=== PATIENT | female | born 1950 | race Two or more races ===

== ENCOUNTER 2023-08-06 10:17 | Inpatient (IN) | payer OTHER, MEDICAID ==
[~2023-08-06] VITALS: Ht 152.4 cm; Wt 104.0 kg
[2023-08-06 11:07] LABS: Basophils # (auto) 0 10 ^3/uL (0-0.2); Basophils % (auto) 0.1 % (0.0-2.0); Eosinophils # (auto) 0 10 ^3/uL (0-0.8); Eosinophils % (auto) 0.1 % (0.0-7.0); Hematocrit 46.9 % (36.0-46.0); Hemoglobin 15.5 g/dL (12.2-16.2); Lymphocytes # (auto) 1.8 10 ^3/uL (0.4-5.4); Lymphocytes % (auto) 9.9 % (10.0-50.0); Mean Corpuscular Hemoglobin 30.5 pg (28.0-32.0); Mean Corpuscular Volume 92.6 fL (80.0-100.0); Monocytes # (auto) 1.3 10 ^3/uL (0-1.3); Monocytes % (auto) 7.2 % (0.0-12.0); Neutrophils # (auto) 15.2 10 ^3/uL (1.6-8.6); Neutrophils % (auto) 82.7 % (37.0-80.0); Red Blood Cells 5.07 10^6/uL (4.0-5.20); Red Cell Distribution Width 13.8 % (11.8-14.3); White Blood Cell 18.3 10^3/uL (4.4-10.8)
[2023-08-06 11:10] LABS: Alanine Aminotransferase 122 U/L (7-40); Albumin 4.3 g/dL (3.2-4.8); Alkaline Phosphatase 79 U/L (46-116); Anion Gap 12 (5-15); Aspartate Aminotransferase 230 U/L (13-40); BUN/Creatinine Ratio 23.8 (10.0-20.0); Bilirubin, Total 0.6 mg/dL (0.2-1.0); Blood Urea Nitrogen 20 mg/dL (9-23); Carbon Dioxide 27 mmol/L (20-30); Chloride 104 mmol/L (98-107); Glucose 185 mg/dL (74-106); Potassium 3.2 mmol/L (3.5-5.1); Sodium 143 mmol/L (136-145); Total Protein 6.9 g/dL (5.7-8.2)
[2023-08-06] MEDS: ONDANSETRON HCL 4 MG/2 ML VIAL IV ONE (11:16)
[2023-08-06 11:17] VITALS: PULSE 90; RESP 20; O2SAT 98
[2023-08-06] MEDS: MORPHINE SULFATE 4 MG/ML SYR/VIAL IV ONE (11:22)
[2023-08-06 13:25] VITALS: PULSE 107; RESP 18; O2SAT 95
[2023-08-06] MEDS: MORPHINE SULFATE INJ 2 MG/ml SYRG ONE (13:27)
[2023-08-06] MEDS ORDERED: KETOROLAC TROMETH 30 MG/ML 1ML VIAL IV PRN (13:30)
[2023-08-06] MEDS: SODIUM CHLORIDE 0.9% 2,000 ML IV ONE (13:30)
[2023-08-06] MEDS: MORPHINE SULFATE INJ 2 MG/ml SYRG IV ONE (13:35)
[2023-08-06] MEDS: PIPERACILLIN-TAZOB 3.375GM 100 ML IV ONE (13:43)
[2023-08-06] MEDS: SODIUM CHLORIDE 0.9% 1,000 ML IV SCH ×2 (13:45→16:32)
[2023-08-06] MEDS ORDERED: ACETAMINOPHEN 325 MG TAB PO PRN (13:45)
[2023-08-06] MEDS ORDERED: PIPERACILLIN-TAZOB 3.375GM 100 ML IV SCH (14:00)
[2023-08-06] MEDS: PANTOPRAZOLE 40 MG/10 ML VIAL INJ IV ONE ×2 (14:01→14:07)
[2023-08-06] MEDS: KETOROLAC TROMETH 30 MG/ML 1ML VIAL ONE (14:01)
[2023-08-06] MEDS: POTASSIUM EFFERVESENT TAB 25 MEQ ONE (14:01)
[2023-08-06 14:02] LABS: Lactic Acid w/Reflex 5.7 mmol/L (0.4-2.0)
[2023-08-06] MEDS: SODIUM CHLORIDE 0.9% 1,000 ML IV ONE (14:07)
[2023-08-06] MEDS: metroNIDAZOLE 500MG/100ML 100 ML IV ONE ×2 (14:07→22:00)
[2023-08-06] MEDS: POTASSIUM EFFERVESENT TAB 25 MEQ PO ONE (14:07)
[2023-08-06] MEDS: KETOROLAC TROMETH 30 MG/ML 1ML VIAL IV ONE (14:08)
[2023-08-06] MEDS: metroNIDAZOLE 500MG/100ML 100 ML IV SCH (14:34)
[2023-08-06 14:36] LABS: Triglycerides 108 mg/dL (< 150)
[2023-08-06] MEDS: levoFLOXacin 750MG 150 ML IV ONE (14:36)
[2023-08-06 14:37] LABS: LDL Cholesterol 121 mg/dL (< 100)
[2023-08-06 14:38] LABS: Cholesterol 204 mg/dL (< 200); HDL Cholesterol 67 mg/dL (40-59)
[2023-08-06 14:40] LABS: INR 1.05 (0.9-1.15)
[2023-08-06] MEDS: MEROPENEM 1GM IVPB 50 ML IV SCH (16:10)
[2023-08-06] MEDS: ONDANSETRON HCL 4 MG/2 ML VIAL ONE ×2 (17:31→23:25)
[2023-08-06] MEDS: MORPHINE SULFATE 4 MG/ML SYR/VIAL ONE (17:38)
[2023-08-06] MEDS: HYDROmorphone HCL 2 MG/ML VL/or syr ONE ×2 (17:46→23:25)
[2023-08-06] MEDS: HYDROmorphone HCL 2 MG/ML VL/or syr IV PRN (17:47)
[2023-08-06 18:44] LABS: LDL Cholesterol 91 mg/dL (< 100); Triglycerides 72 mg/dL (< 150)
[2023-08-06] MEDS ORDERED: hydrALAZINE HCL 20 MG/ML VL IV PRN (18:45)
[2023-08-06 18:46] LABS: Cholesterol 162 mg/dL (< 200); HDL Cholesterol 56 mg/dL (40-59)
[2023-08-06 18:55] LABS: Lactic Acid w/Reflex 4.3 mmol/L (0.4-2.0)
[2023-08-06 19:45] VITALS: PULSE 112; RESP 14; O2SAT 96
[2023-08-06 20:57] LABS: Urine Bacteria None Seen /hpf (None Seen)
[2023-08-06 21:04] LABS: Urine Blood 1+ /uL (Negative); Urine Clarity Clear (Clear); Urine Color Yellow (Yellow); Urine Mucus FEW (None Seen); Urine Protein, UAD 1+ (Negative); Urine Urobilinogen Normal (Negative); Urine WBC 5 /hpf (0 - 5); Urine pH 6.5 (5.0-9.0)
[2023-08-06 21:15] LABS: Amphetamine Screen, Urine Neg (NEGATIVE); Barbiturate Scree,Urine Neg (NEGATIVE); Benzodiazephine Screen, Urine Neg (NEGATIVE)
[2023-08-06 21:16] LABS: Cannabinoid Screen, Urine Neg (NEGATIVE); Cocaine Screen, Urine Neg (NEGATIVE); Opiate Scree,Urine Pos (NEGATIVE); Phencyclidine Screen, Urine Neg (NEGATIVE)
[2023-08-06 21:20] LABS: Urine Specific Gravity > 1.035 (1.001-1.035)
[2023-08-06] MEDS: MEROPENEM 500MG IVPB 50 ML IV ONE (22:00)
[2023-08-06] MEDS ORDERED: MEROPENEM 1GM IVPB 50 ML IV SCH (22:00)
[2023-08-06] MEDS: ONDANSETRON HCL 4 MG/2 ML VIAL IV PRN (23:28)
[2023-08-06 23:30] VITALS: BP 151/105; PULSE 124; RESP 18; RESP 20; O2SAT 95
[2023-08-07] VITALS (10 sets, daily range): BP systolic 101–132; BP diastolic 62–89; PULSE 132–143; RESP 16–22; TEMP 96.5–98.6; O2SAT 92–98
[2023-08-07] MEDS: MORPHINE SULFATE INJ 2 MG/ml SYRG ONE (05:36)
[2023-08-07] MEDS: metroNIDAZOLE 500MG/100ML 100 ML IV ONE (05:36)
[2023-08-07] MEDS: MORPHINE SULFATE INJ 2 MG/ml SYRG IV PRN (05:42)
[2023-08-07 06:38] LABS: Alanine Aminotransferase 60 U/L (7-40); Albumin 3.3 g/dL (3.2-4.8); Alkaline Phosphatase 53 U/L (46-116); Anion Gap 12 (5-15); BUN/Creatinine Ratio 14.5 (10.0-20.0); Bilirubin, Total 0.8 mg/dL (0.2-1.0); Blood Urea Nitrogen 19 mg/dL (9-23); Carbon Dioxide 18 mmol/L (20-30); Chloride 110 mmol/L (98-107); Glucose 190 mg/dL (74-106); Potassium 5.1 mmol/L (3.5-5.1); Sodium 140 mmol/L (136-145); Total Protein 5.9 g/dL (5.7-8.2)
[2023-08-07 06:44] LABS: Lactic Acid w/Reflex 4.7 mmol/L (0.4-2.0)
[2023-08-07 06:45] LABS: Lipase 1307 U/L (12-53)
[2023-08-07 06:47] LABS: Aspartate Aminotransferase 72 U/L (13-40)
[2023-08-07 06:57] LABS: Hematocrit 52.2 % (36.0-46.0); Mean Corpuscular Hemoglobin 30.5 pg (28.0-32.0); Mean Corpuscular Hgb Conc. 32.6 g/dL (32.0-36.0); Mean Corpuscular Volume 93.5 fL (80.0-100.0); Red Blood Cells 5.58 10^6/uL (4.0-5.20); Red Cell Distribution Width 14.6 % (11.8-14.3); White Blood Cell 21.3 10^3/uL (4.4-10.8)
[2023-08-07 07:01] LABS: Band Neutrophils % (manual) 0; Basophils % (manual) 0 (0.0-2.0); Blast Cells 0; Eosinophils % (manual) 0 (0-7); Metamyelocytes % 0; Myelocytes % 0; Promyelocytes % 0; Reactive Lymphocytes 0
[2023-08-07 08:04] LABS: Lymphocytes % (manual) 6 (10.0-50.0); Monocytes % (manual) 6 (0-12); Platelet Estimate Adequate
[2023-08-07 08:33] LABS: Hepatitis B Surface Antigen Negative (Negative)
[2023-08-07 08:53] LABS: Hepatitis A Ab IgM Negative
[2023-08-07 08:54] LABS: Hepatitis B Core IgM Negative; Hepatitis C Antibody Negative (Negative)
[2023-08-07] MEDS ORDERED: ENOXAPARIN SOD 40 MG/0.4 ML SYRINGE SC SCH (10:00)
[2023-08-07] MEDS: PANTOPRAZOLE 40 MG/10 ML VIAL INJ IV SCH (12:20)
[2023-08-07] MEDS: MEROPENEM 1GM IVPB 50 ML IV SCH (12:20)
[2023-08-07] MEDS: ALBUTEROL SULF 2.5 MG/0.5ML(0.5%) NEB SOLN ONE (21:00)
[2023-08-07] MEDS: ALBUTEROL SULF 2.5 MG/0.5ML(0.5%) NEB SOLN NEB PRN (21:15)
[2023-08-07] MEDS: ENOXAPARIN SOD 100 MG/1 ML SYRINGE SC ONE ×2 (22:15→23:06)
[2023-08-07] MEDS: SODIUM CHLORIDE 0.9% 1,000 ML IV SCH (23:20)
[2023-08-08] VITALS (56 sets, daily range): BP systolic 87–187; BP diastolic 49–98; PULSE 104–153; RESP 18–41; TEMP 97.6–100.6; O2SAT 88–100
[2023-08-08] MEDS: IOHEXOL 350 MG/ML 100ML IJ ONE (00:18)
[2023-08-08] MEDS: ALBUTEROL SULF 2.5 MG/0.5ML(0.5%) NEB SOLN ONE (04:17)
[2023-08-08 07:03] LABS: Alanine Aminotransferase 37 U/L (7-40); Alkaline Phosphatase 58 U/L (46-116); Anion Gap 12 (5-15); Aspartate Aminotransferase 103 U/L (13-40); BUN/Creatinine Ratio 12.3 (10.0-20.0); Calcium 7.1 mg/dL (8.5-10.1); Carbon Dioxide 16 mmol/L (20-30); Chloride 112 mmol/L (98-107); Glucose 117 mg/dL (74-106); Potassium 4.7 mmol/L (3.5-5.1); Sodium 140 mmol/L (136-145)
[2023-08-08 07:04] LABS: Bilirubin, Total 0.9 mg/dL (0.2-1.0); Total Protein 5.1 g/dL (5.7-8.2)
[2023-08-08 07:06] LABS: Basophils # (auto) 0 10 ^3/uL (0-0.2); Blood Urea Nitrogen 31 mg/dL (9-23); Eosinophils # (auto) 0 10 ^3/uL (0-0.8); Hemoglobin 14.3 g/dL (12.2-16.2); Red Cell Distribution Width 15.7 % (11.8-14.3); White Blood Cell 27.1 10^3/uL (4.4-10.8)
[2023-08-08 07:10] LABS: Basophils % (auto) 0.1 % (0.0-2.0); Lymphocytes # (auto) 1.5 10 ^3/uL (0.4-5.4); Lymphocytes % (auto) 5.6 % (10.0-50.0); Mean Corpuscular Hemoglobin 31.1 pg (28.0-32.0); Mean Corpuscular Hgb Conc. 31.8 g/dL (32.0-36.0); Mean Corpuscular Volume 97.8 fL (80.0-100.0); Monocytes % (auto) 7.4 % (0.0-12.0); Neutrophils # (auto) 23.6 10 ^3/uL (1.6-8.6); Neutrophils % (auto) 86.9 % (37.0-80.0); Red Blood Cells 4.61 10^6/uL (4.0-5.20)
[2023-08-08 07:28] LABS: Lipase 1324 U/L (12-53)
[2023-08-08] MEDS: FUROSEMIDE 100 MG/10ML VIAL IV ONE (11:10)
[2023-08-08 11:49] LABS: Phosphorus 5.6 mg/dL (2.4-5.1)
[2023-08-08 12:12] LABS: Magnesium 1.6 mg/dL (1.6-2.6)
[2023-08-08 13:13] LABS: Base Excess -10.2 mmol/L (-2.0-2.0)
[2023-08-08] MEDS: fentaNYL Drip 2500mCg/250mlNS 250 ML IV ONE (13:16)
[2023-08-08] MEDS: ROCURONIUM 10MG/ML 10ML VIAL IV ONE ×2 (13:16→13:33)
[2023-08-08] MEDS: ETOMIDATE (2MG/ML) 20ML VIAL IV ONE ×2 (13:16→13:33)
[2023-08-08] MEDS: PROPOFOL 100 ML IV ONE (13:17)
[2023-08-08] MEDS: NOREPINEPHRINE 8 MG/250ML KIT 250 ML IV ONE (13:19)
[2023-08-08] MEDS: SODIUM BICARB 8.4% 50Meq/50ml SYR INJ ONE (13:39)
[2023-08-08] MEDS: PHENYLEPHRINE IV 250 ML IV ONE (13:40)
[2023-08-08] MEDS: fentaNYL Drip 2500mCg/250mlNS 250 ML IV SCH (13:42)
[2023-08-08] MEDS: PROPOFOL 100 ML IV SCH (13:42)
[2023-08-08] MEDS: NOREPINEPHRINE 8 MG/250ML KIT 250 ML IV SCH (13:42)
[2023-08-08] MEDS: SODIUM BICARB 8.4% 50Meq/50ml SYR Vial IV ONE ×2 (13:45→16:29)
[2023-08-08 15:05] LABS: Base Excess -9.1 mmol/L (-2.0-2.0)
[2023-08-08] MEDS: PHENYLEPHRINE IV 250 ML IV SCH (15:30)
[2023-08-08] MEDS: VASOPRESSIN 20 UNITS in SODIUM CHL 0.9% 99 ML IV SCH (15:30)
[2023-08-08] MEDS: MIDAZOLAM DRIP 50 mg/50mL 50 ML IV SCH (15:30)
[2023-08-08] MEDS: ACETAMINOPHEN IV 1000 MG/100ML (10MG/ML) IV PRN (22:05)
[2023-08-08] MEDS: MEROPENEM 500MG IVPB 50 ML IV SCH (22:06)
[2023-08-09] VITALS (102 sets, daily range): BP systolic 84–120; BP diastolic 43–73; PULSE 99–134; RESP 16–24; TEMP 98.6–100.4; O2SAT 95–100
[2023-08-09 03:48] LABS: Basophils # (auto) 0.1 10 ^3/uL (0-0.2); Basophils % (auto) 0.3 % (0.0-2.0); Eosinophils # (auto) 0 10 ^3/uL (0-0.8); Eosinophils % (auto) 0.1 % (0.0-7.0); Hematocrit 40.7 % (36.0-46.0); Hemoglobin 13.3 g/dL (12.2-16.2); Lymphocytes # (auto) 1.3 10 ^3/uL (0.4-5.4); Lymphocytes % (auto) 6.1 % (10.0-50.0); Mean Corpuscular Hemoglobin 30.1 pg (28.0-32.0); Mean Corpuscular Hgb Conc. 32.6 g/dL (32.0-36.0); Mean Corpuscular Volume 92.3 fL (80.0-100.0); Monocytes % (auto) 4.8 % (0.0-12.0); Neutrophils # (auto) 18.4 10 ^3/uL (1.6-8.6); Neutrophils % (auto) 88.7 % (37.0-80.0); Red Blood Cells 4.41 10^6/uL (4.0-5.20); Red Cell Distribution Width 14.8 % (11.8-14.3); White Blood Cell 20.7 10^3/uL (4.4-10.8)
[2023-08-09 04:06] LABS: Anion Gap 11 (5-15); Carbon Dioxide 20 mmol/L (20-30); Chloride 112 mmol/L (98-107); Potassium 3.6 mmol/L (3.5-5.1); Sodium 143 mmol/L (136-145)
[2023-08-09 04:07] LABS: Calcium 6.9 mg/dL (8.7-10.4); INR 1.38 (0.9-1.15); Prothrombin Time 14.2 sec (9.3-11.8)
[2023-08-09 04:12] LABS: BUN/Creatinine Ratio 28.9 (10.0-20.0); Glucose 142 mg/dL (74-106)
[2023-08-09 04:15] LABS: Blood Urea Nitrogen 48 mg/dL (9-23)
[2023-08-09 07:05] LABS: Base Excess -3.8 mmol/L (-2.0-2.0)
[2023-08-09] MEDS: KETOROLAC TROMETH 30 MG/ML 1ML VIAL IV ONE (11:06)
[2023-08-09] MEDS ORDERED: TPN PER PHARMACY 0 ML IV SCH (14:00)
[2023-08-09] MEDS: FUROSEMIDE INJECTION 10 ML ONE (14:21)
[2023-08-09] MEDS: FUROSEMIDE 100 MG/10ML VIAL IV ONE ×2 (14:30)
[2023-08-09] MEDS ORDERED: KETOROLAC TROMETH 30 MG/ML 1ML VIAL IV PRN (17:15)
[2023-08-09] MEDS ORDERED: DEXTROSE (50%) 50ML SYRG IV SCH (20:00)
[2023-08-09] MEDS: AMINO ACID INFUSION IN D10W 1,000 ML IV SCH (20:07)
[2023-08-09] MEDS: InsuLIN REG 1unit/0.01ml Soln (100units/ml) SC SCH (23:49)
[2023-08-09] MEDS: ACCU-CHEK COMFORT CURVE STRIP VI SCH (23:49)
[2023-08-10] VITALS (106 sets, daily range): BP systolic 85–137; BP diastolic 37–90; PULSE 65–116; RESP 16–24; TEMP 98.6–100.8; O2SAT 93–100
[2023-08-10 04:18] LABS: Alanine Aminotransferase 15 U/L (7-40); Albumin 2.4 g/dL (3.2-4.8); Alkaline Phosphatase 49 U/L (46-116); Anion Gap 9 (5-15); Aspartate Aminotransferase 26 U/L (13-40); BUN/Creatinine Ratio 32.3 (10.0-20.0); Bilirubin, Total 0.5 mg/dL (0.2-1.0); Blood Urea Nitrogen 40 mg/dL (9-23); Carbon Dioxide 20 mmol/L (20-30); Chloride 115 mmol/L (98-107); Glucose 195 mg/dL (74-106); Lipase 80 U/L (12-53); Magnesium 1.5 mg/dL (1.6-2.6); Phosphorus 3.3 mg/dL (2.4-5.1); Potassium 3.6 mmol/L (3.5-5.1); Sodium 144 mmol/L (136-145)
[2023-08-10 04:19] LABS: Total Protein 4.5 g/dL (5.7-8.2)
[2023-08-10 04:32] LABS: Triglycerides 293 mg/dL (< 150)
[2023-08-10 07:53] LABS: Base Excess -4.4 mmol/L (-2.0-2.0)
[2023-08-10] MEDS: MAGNESIUM SULFATE 1GM/100ML 100 ML IV SCH (09:16)
[2023-08-10] MEDS: ACETAMINOPHEN IV 1000 MG/100ML (10MG/ML) IV PRN (10:13)
[2023-08-10] MEDS: LACTATED RINGER'S 1,000 ML IV SCH (10:14)
[2023-08-10] MEDS: FUROSEMIDE 40 MG/4 ML VIAL IV ONE (16:45)
[2023-08-10] MEDS: TPN PER PHARMACY IV NR (20:00)
[2023-08-11] VITALS (107 sets, daily range): BP systolic 91–143; BP diastolic 32–67; PULSE 75–102; RESP 17–23; TEMP 99.1–100.6; O2SAT 92–100
[2023-08-11 03:31] LABS: Hematocrit 33.1 % (36.0-46.0); Hemoglobin 10.6 g/dL (12.2-16.2); Mean Corpuscular Hemoglobin 29.8 pg (28.0-32.0); Mean Corpuscular Hgb Conc. 32.1 g/dL (32.0-36.0); Mean Corpuscular Volume 92.6 fL (80.0-100.0); Red Blood Cells 3.57 10^6/uL (4.0-5.20); Red Cell Distribution Width 14.8 % (11.8-14.3); White Blood Cell 23.2 10^3/uL (4.4-10.8)
[2023-08-11 03:44] LABS: Basophils % (manual) 0 (0.0-2.0); Blast Cells 0; Eosinophils % (manual) 0 (0-7); Metamyelocytes % 0; Myelocytes % 0; Promyelocytes % 0; Reactive Lymphocytes 0
[2023-08-11 03:50] LABS: Alanine Aminotransferase 11 U/L (7-40); Albumin 2.3 g/dL (3.2-4.8); Alkaline Phosphatase 67 U/L (46-116); Anion Gap 5 (5-15); Aspartate Aminotransferase 27 U/L (13-40); BUN/Creatinine Ratio 46.8 (10.0-20.0); Blood Urea Nitrogen 36 mg/dL (9-23); Calcium 7.8 mg/dL (8.7-10.4); Carbon Dioxide 26 mmol/L (20-30); Chloride 114 mmol/L (98-107); Glucose 173 mg/dL (74-106); Lipase 47 U/L (12-53); Magnesium 2.1 mg/dL (1.6-2.6); Potassium 3.9 mmol/L (3.5-5.1); Sodium 145 mmol/L (136-145)
[2023-08-11 03:51] LABS: Bilirubin, Total 0.5 mg/dL (0.2-1.0); Phosphorus 2.4 mg/dL (2.4-5.1); Total Protein 4.4 g/dL (5.7-8.2)
[2023-08-11 05:20] LABS: Band Neutrophils % (manual) 39; Lymphocytes % (manual) 8 (10.0-50.0); Monocytes % (manual) 3 (0-12); Platelet Estimate Adequate
[2023-08-11 08:30] LABS: Base Excess 1.3 mmol/L (-2.0-2.0)
[2023-08-11] MEDS: FUROSEMIDE 40 MG/4 ML VIAL IV ONE (11:14)
[2023-08-11] MEDS: POTASSIUM PHOSPHATE 11 MEQ in SODIUM CHL 0.9% 100 ML IV ONE (12:02)
[2023-08-11] MEDS: LACTATED RINGER'S 1,000 ML IV SCH (16:29)
[2023-08-11] MEDS: TPN PER PHARMACY IV NR (19:51)
[2023-08-12] VITALS (112 sets, daily range): BP systolic 95–155; BP diastolic 43–85; PULSE 86–119; RESP 14–26; TEMP 99.3–100; O2SAT 90–100
[2023-08-12 04:10] LABS: Hematocrit 30.4 % (36.0-46.0); Hemoglobin 9.8 g/dL (12.2-16.2); Mean Corpuscular Hemoglobin 29.8 pg (28.0-32.0); Mean Corpuscular Hgb Conc. 32.3 g/dL (32.0-36.0); Mean Corpuscular Volume 92.4 fL (80.0-100.0); Red Blood Cells 3.29 10^6/uL (4.0-5.20); Red Cell Distribution Width 14.9 % (11.8-14.3); White Blood Cell 22.8 10^3/uL (4.4-10.8)
[2023-08-12 04:13] LABS: Basophils % (manual) 0 (0.0-2.0); Blast Cells 0; Eosinophils % (manual) 0 (0-7); Metamyelocytes % 0; Myelocytes % 0; Promyelocytes % 0; Reactive Lymphocytes 0
[2023-08-12 04:28] LABS: Alanine Aminotransferase 11 U/L (7-40); Albumin 2.2 g/dL (3.2-4.8); Alkaline Phosphatase 71 U/L (46-116); Anion Gap 3 (5-15); Aspartate Aminotransferase 26 U/L (13-40); Bilirubin, Total 0.4 mg/dL (0.2-1.0); Blood Urea Nitrogen 33 mg/dL (9-23); Calcium 7.9 mg/dL (8.7-10.4); Carbon Dioxide 31 mmol/L (20-30); Chloride 112 mmol/L (98-107); Glucose 356 mg/dL (74-106); Magnesium 2.3 mg/dL (1.6-2.6); Phosphorus 2.2 mg/dL (2.4-5.1); Potassium 3.8 mmol/L (3.5-5.1); Sodium 146 mmol/L (136-145); Total Protein 4.3 g/dL (5.7-8.2)
[2023-08-12 04:44] LABS: Band Neutrophils % (manual) 19; Lymphocytes % (manual) 10 (10.0-50.0); Monocytes % (manual) 7 (0-12)
[2023-08-12 04:45] LABS: Platelet Estimate Adequate
[2023-08-12 09:25] LABS: Base Excess 1.8 mmol/L (-2.0-2.0)
[2023-08-12] MEDS: FUROSEMIDE 40 MG/4 ML VIAL ONE (10:09)
[2023-08-12] MEDS: FUROSEMIDE 40 MG/4 ML VIAL IV ONE (10:19)
[2023-08-12] MEDS: POTASSIUM PHOSPHATE 22 MEQ in SODIUM CHL 0.9% 100 ML IV ONE (12:50)
[2023-08-12] MEDS: TPN PER PHARMACY IV NR (19:29)
[2023-08-13] VITALS (114 sets, daily range): BP systolic 80–149; BP diastolic 43–101; PULSE 70–122; RESP 15–30; TEMP 98.6–99.7; O2SAT 93–99
[2023-08-13 03:54] LABS: Hematocrit 32.9 % (36.0-46.0); Hemoglobin 10.8 g/dL (12.2-16.2); Mean Corpuscular Hemoglobin 30.2 pg (28.0-32.0); Mean Corpuscular Hgb Conc. 32.9 g/dL (32.0-36.0); Red Blood Cells 3.58 10^6/uL (4.0-5.20); Red Cell Distribution Width 14.7 % (11.8-14.3); White Blood Cell 26.9 10^3/uL (4.4-10.8)
[2023-08-13 03:56] LABS: Albumin 2.5 g/dL (3.2-4.8); Alkaline Phosphatase 96 U/L (46-116); Anion Gap 7 (5-15); Aspartate Aminotransferase 39 U/L (13-40); BUN/Creatinine Ratio 59.6 (10.0-20.0); Blood Urea Nitrogen 31 mg/dL (9-23); Calcium 8.1 mg/dL (8.7-10.4); Carbon Dioxide 31 mmol/L (20-30); Chloride 112 mmol/L (98-107); Glucose 231 mg/dL (74-106); Magnesium 2.2 mg/dL (1.6-2.6); Potassium 3.3 mmol/L (3.5-5.1); Sodium 150 mmol/L (136-145)
[2023-08-13 03:57] LABS: Total Protein 4.8 g/dL (5.7-8.2)
[2023-08-13 04:14] LABS: Basophils % (manual) 0 (0.0-2.0); Blast Cells 0; Eosinophils % (manual) 0 (0-7); Metamyelocytes % 0; Myelocytes % 0; Promyelocytes % 0; Reactive Lymphocytes 0
[2023-08-13 04:22] LABS: Alanine Aminotransferase 16 U/L (7-40)
[2023-08-13 05:15] LABS: Phosphorus 2.7 mg/dL (2.4-5.1); Triglycerides 199 mg/dL (< 150)
[2023-08-13] MEDS: POTASSIUM CHL 20MEQ/100ML 100 ML IV ONE ×2 (05:49→10:00)
[2023-08-13 07:21] LABS: Band Neutrophils % (manual) 18; Lymphocytes % (manual) 9 (10.0-50.0); Monocytes % (manual) 6 (0-12); Platelet Estimate Adequate
[2023-08-13 07:59] LABS: Base Excess 6.9 mmol/L (-2.0-2.0)
[2023-08-13] MEDS: FUROSEMIDE 40 MG/4 ML VIAL IV SCH (10:31)
[2023-08-13] MEDS: METOPROLOL TARTRATE 1MG/1ML-5ML VIAL IV SCH (18:34)
[2023-08-13] MEDS: TPN PER PHARMACY IV NR (22:18)
[2023-08-14] VITALS (110 sets, daily range): BP systolic 82–136; BP diastolic 25–73; PULSE 81–125; RESP 12–32; TEMP 99.3–101.5; O2SAT 93–100
[2023-08-14 04:04] LABS: Hematocrit 31.6 % (36.0-46.0); Hemoglobin 10.2 g/dL (12.2-16.2); Mean Corpuscular Hemoglobin 29.7 pg (28.0-32.0); Mean Corpuscular Hgb Conc. 32.1 g/dL (32.0-36.0); Mean Corpuscular Volume 92.5 fL (80.0-100.0); Red Blood Cells 3.42 10^6/uL (4.0-5.20); Red Cell Distribution Width 14.8 % (11.8-14.3); White Blood Cell 27.5 10^3/uL (4.4-10.8)
[2023-08-14 04:17] LABS: Basophils % (manual) 0 (0.0-2.0); Blast Cells 0; Eosinophils % (manual) 0 (0-7); Metamyelocytes % 0; Promyelocytes % 0; Reactive Lymphocytes 0
[2023-08-14 04:24] LABS: Alanine Aminotransferase 36 U/L (7-40); Albumin 2.6 g/dL (3.2-4.8); Alkaline Phosphatase 109 U/L (46-116); Anion Gap 7 (5-15); Aspartate Aminotransferase 70 U/L (13-40); BUN/Creatinine Ratio 56.1 (10.0-20.0); Blood Urea Nitrogen 32 mg/dL (9-23); Calcium 8.2 mg/dL (8.7-10.4); Carbon Dioxide 35 mmol/L (20-30); Chloride 108 mmol/L (98-107); Glucose 212 mg/dL (74-106); Magnesium 2.1 mg/dL (1.6-2.6); Potassium 3.4 mmol/L (3.5-5.1); Sodium 150 mmol/L (136-145)
[2023-08-14 04:25] LABS: Bilirubin, Total 1.2 mg/dL (0.2-1.0); Phosphorus 3.5 mg/dL (2.4-5.1); Total Protein 4.9 g/dL (5.7-8.2)
[2023-08-14 06:48] LABS: Base Excess 9.5 mmol/L (-2.0-2.0)
[2023-08-14 07:01] LABS: Band Neutrophils % (manual) 20; Lymphocytes % (manual) 3 (10.0-50.0); Monocytes % (manual) 5 (0-12); Myelocytes % 2; Platelet Estimate Adequate
[2023-08-14] MEDS: POTASSIUM CHL 20MEQ/100ML 100 ML IV ONE (10:15)
[2023-08-14] MEDS: TPN PER PHARMACY IV NR (21:10)
[2023-08-14] MEDS: ACETAMINOPHEN IV 100 ML IV ONE (22:40)
[2023-08-15] VITALS (115 sets, daily range): BP systolic 89–122; BP diastolic 38–65; PULSE 74–115; RESP 17–30; TEMP 99.3–101.8; O2SAT 92–100
[2023-08-15 03:59] LABS: Hematocrit 30.1 % (36.0-46.0); Hemoglobin 9.5 g/dL (12.2-16.2); Mean Corpuscular Hemoglobin 29.7 pg (28.0-32.0); Mean Corpuscular Hgb Conc. 31.7 g/dL (32.0-36.0); Mean Corpuscular Volume 93.6 fL (80.0-100.0); Red Blood Cells 3.22 10^6/uL (4.0-5.20); Red Cell Distribution Width 14.9 % (11.8-14.3); White Blood Cell 28.8 10^3/uL (4.4-10.8)
[2023-08-15 04:09] LABS: Basophils % (manual) 0 (0.0-2.0); Blast Cells 0; Eosinophils % (manual) 0 (0-7); Metamyelocytes % 0; Promyelocytes % 0; Reactive Lymphocytes 0
[2023-08-15 04:22] LABS: Alanine Aminotransferase 33 U/L (7-40); Albumin 2.3 g/dL (3.2-4.8); Alkaline Phosphatase 98 U/L (46-116); Anion Gap 3 (5-15); Aspartate Aminotransferase 45 U/L (13-40); BUN/Creatinine Ratio 55.4 (10.0-20.0); Bilirubin, Total 1.2 mg/dL (0.2-1.0); Blood Urea Nitrogen 31 mg/dL (9-23); Carbon Dioxide 36 mmol/L (20-30); Chloride 109 mmol/L (98-107); Glucose 228 mg/dL (74-106); Magnesium 2.2 mg/dL (1.6-2.6); Phosphorus 3.7 mg/dL (2.4-5.1); Potassium 3.7 mmol/L (3.5-5.1); Sodium 148 mmol/L (136-145)
[2023-08-15 04:23] LABS: Total Protein 4.5 g/dL (5.7-8.2)
[2023-08-15 05:51] LABS: Band Neutrophils % (manual) 12; Monocytes % (manual) 4 (0-12); Myelocytes % 1
[2023-08-15 05:52] LABS: Large Platelets FEW; Lymphocytes % (manual) 3 (10.0-50.0); Platelet Estimate Adequate
[2023-08-15] MEDS: ENOXAPARIN SOD 40 MG/0.4 ML SYRINGE SC SCH (07:45)
[2023-08-15 09:19] LABS: Base Excess 6.5 mmol/L (-2.0-2.0)
[2023-08-15] MEDS ORDERED: VANCOMYCIN PER PHARMACY 0 MG IV SCH (10:30)
[2023-08-15] MEDS: MEROPENEM 1GM IVPB 50 ML IV SCH (11:48)
[2023-08-15] MEDS: ACETAMINOPHEN 650 MG RECT SUPP PR PRN (14:00)
[2023-08-15] MEDS: VANCOMYCIN 750mg/150ml 150 ML IV SCH (14:35)
[2023-08-15] MEDS: FUROSEMIDE 40 MG/4 ML VIAL IV SCH (16:35)
[2023-08-15] MEDS: TPN PER PHARMACY IV NR (20:14)
[2023-08-16] VITALS (98 sets, daily range): BP systolic 75–134; BP diastolic 29–65; PULSE 58–111; RESP 17–21; TEMP 98.2–100.9; O2SAT 94–100
[2023-08-16 04:26] LABS: Alanine Aminotransferase 22 U/L (7-40); Albumin 2.3 g/dL (3.2-4.8); Alkaline Phosphatase 110 U/L (46-116); Anion Gap 3 (5-15); Aspartate Aminotransferase 30 U/L (13-40); BUN/Creatinine Ratio 58.3 (10.0-20.0); Bilirubin, Total 0.9 mg/dL (0.2-1.0); Blood Urea Nitrogen 28 mg/dL (9-23); Calcium 8.2 mg/dL (8.7-10.4); Carbon Dioxide 35 mmol/L (20-30); Chloride 106 mmol/L (98-107); Glucose 164 mg/dL (74-106); Phosphorus 3.7 mg/dL (2.4-5.1); Potassium 3.8 mmol/L (3.5-5.1); Sodium 144 mmol/L (136-145); Total Protein 4.6 g/dL (5.7-8.2)
[2023-08-16 07:11] LABS: Base Excess 8.9 mmol/L (-2.0-2.0)
[2023-08-16 09:27] LABS: Red Cell Distribution Width 14.5 % (11.8-14.3)
[2023-08-16 09:29] LABS: Hematocrit 31.7 % (36.0-46.0); Hemoglobin 10.1 g/dL (12.2-16.2); Mean Corpuscular Hemoglobin 29.9 pg (28.0-32.0); Mean Corpuscular Hgb Conc. 31.8 g/dL (32.0-36.0); Mean Corpuscular Volume 93.8 fL (80.0-100.0); Red Blood Cells 3.38 10^6/uL (4.0-5.20)
[2023-08-16 09:35] LABS: White Blood Cell 32.4 10^3/uL (4.4-10.8)
[2023-08-16 09:36] LABS: Basophils % (manual) 0 (0.0-2.0); Blast Cells 0; Eosinophils % (manual) 0 (0-7); Metamyelocytes % 0; Myelocytes % 0; Promyelocytes % 0; Reactive Lymphocytes 0
[2023-08-16] MEDS: FUROSEMIDE 40 MG/4 ML VIAL IV SCH (10:16)
[2023-08-16 13:18] LABS: Band Neutrophils % (manual) 33; Lymphocytes % (manual) 7 (10.0-50.0); Monocytes % (manual) 8 (0-12)
[2023-08-16 13:19] LABS: Platelet Estimate Adequate
[2023-08-16] MEDS: TPN PER PHARMACY IV NR (19:52)
[2023-08-17] VITALS (105 sets, daily range): BP systolic 88–138; BP diastolic 36–63; PULSE 73–108; RESP 16–25; TEMP 98.8–102.4; O2SAT 93–100
[2023-08-17 04:01] LABS: Hematocrit 30.2 % (36.0-46.0); Hemoglobin 9.8 g/dL (12.2-16.2); Mean Corpuscular Hemoglobin 30.2 pg (28.0-32.0); Mean Corpuscular Hgb Conc. 32.3 g/dL (32.0-36.0); Mean Corpuscular Volume 93.4 fL (80.0-100.0); Red Blood Cells 3.23 10^6/uL (4.0-5.20); Red Cell Distribution Width 14.5 % (11.8-14.3); White Blood Cell 28.3 10^3/uL (4.4-10.8)
[2023-08-17 04:08] LABS: Basophils % (manual) 0 (0.0-2.0); Blast Cells 0; Metamyelocytes % 0; Promyelocytes % 0; Reactive Lymphocytes 0
[2023-08-17 04:18] LABS: Alanine Aminotransferase 16 U/L (7-40); Albumin 2.3 g/dL (3.2-4.8); Alkaline Phosphatase 110 U/L (46-116); Anion Gap 4 (5-15); Aspartate Aminotransferase 28 U/L (13-40); BUN/Creatinine Ratio 61.7 (10.0-20.0); Bilirubin, Total 0.8 mg/dL (0.2-1.0); Blood Urea Nitrogen 29 mg/dL (9-23); Calcium 8.2 mg/dL (8.7-10.4); Carbon Dioxide 33 mmol/L (20-30); Chloride 103 mmol/L (98-107); Glucose 165 mg/dL (74-106); Phosphorus 3.7 mg/dL (2.4-5.1); Potassium 3.9 mmol/L (3.5-5.1); Sodium 140 mmol/L (136-145); Total Protein 4.8 g/dL (5.7-8.2)
[2023-08-17 05:05] LABS: Band Neutrophils % (manual) 8; Eosinophils % (manual) 3 (0-7); Lymphocytes % (manual) 5 (10.0-50.0); Monocytes % (manual) 4 (0-12); Myelocytes % 1; Platelet Estimate Adequate
[2023-08-17 08:00] LABS: Base Excess 5.9 mmol/L (-2.0-2.0)
[2023-08-17] MEDS: GLYCERIN ADULT RECTAL SUPP PR ONE (13:50)
[2023-08-17] MEDS: VANCOMYCIN 1GM/200ML 200 ML IV SCH (14:00)
[2023-08-17] MEDS ORDERED: LABETALOL HCL 5 MG/ML 4ML SYRINGE IV PRN (19:00)
[2023-08-17] MEDS: TPN PER PHARMACY IV NR (20:00)
[2023-08-18] VITALS (113 sets, daily range): BP systolic 90–148; BP diastolic 41–75; PULSE 71–103; RESP 15–24; TEMP 98.6–101.7; O2SAT 96–100
[2023-08-18 04:23] LABS: Hematocrit 29.9 % (36.0-46.0); Hemoglobin 9.5 g/dL (12.2-16.2); Mean Corpuscular Hemoglobin 29.4 pg (28.0-32.0); Mean Corpuscular Hgb Conc. 31.7 g/dL (32.0-36.0); Red Blood Cells 3.22 10^6/uL (4.0-5.20); Red Cell Distribution Width 14.7 % (11.8-14.3); White Blood Cell 28.9 10^3/uL (4.4-10.8)
[2023-08-18 04:30] LABS: Basophils % (manual) 0 (0.0-2.0); Blast Cells 0; Metamyelocytes % 0; Myelocytes % 0; Promyelocytes % 0; Reactive Lymphocytes 0
[2023-08-18 05:34] LABS: Alkaline Phosphatase 127 U/L (46-116); Anion Gap 9 (5-15); Aspartate Aminotransferase 40 U/L (13-40); BUN/Creatinine Ratio 31.8 (10.0-20.0); Blood Urea Nitrogen 14 mg/dL (9-23); Calcium 7.9 mg/dL (8.5-10.1); Carbon Dioxide 24 mmol/L (20-30); Chloride 104 mmol/L (98-107); Glucose 146 mg/dL (74-106); Potassium 5.2 mmol/L (3.5-5.1); Sodium 137 mmol/L (136-145)
[2023-08-18 05:35] LABS: Albumin 2.3 g/dL (3.2-4.8); Bilirubin, Total 0.5 mg/dL (0.2-1.0); Phosphorus 4.2 mg/dL (2.4-5.1); Total Protein 4.5 g/dL (5.7-8.2)
[2023-08-18 05:41] LABS: Alanine Aminotransferase < 9 U/L (7-40)
[2023-08-18 05:48] LABS: Band Neutrophils % (manual) 13; Eosinophils % (manual) 2 (0-7); Lymphocytes % (manual) 3 (10.0-50.0); Monocytes % (manual) 7 (0-12); Platelet Estimate Adequate
[2023-08-18 05:55] LABS: Magnesium 2.1 mg/dL (1.6-2.6)
[2023-08-18] MEDS: SODIUM BICARB 8.4% 50Meq/50ml SYR Vial IV ONE (09:04)
[2023-08-18 10:14] LABS: Base Excess 2.7 mmol/L (-2.0-2.0)
[2023-08-18] MEDS: AMINO ACID INFUSION IN D10W 1,000 ML IV SCH (13:23)
[2023-08-18] MEDS: TPN PER PHARMACY IV NR (21:05)
[2023-08-19] VITALS (107 sets, daily range): BP systolic 94–137; BP diastolic 37–75; PULSE 73–103; RESP 16–23; TEMP 97.5–101.7; O2SAT 92–100
[2023-08-19 03:58] LABS: Hematocrit 29.2 % (36.0-46.0); Hemoglobin 9.3 g/dL (12.2-16.2); Mean Corpuscular Hemoglobin 29.6 pg (28.0-32.0); Mean Corpuscular Hgb Conc. 31.8 g/dL (32.0-36.0); Mean Corpuscular Volume 93.3 fL (80.0-100.0); Red Blood Cells 3.13 10^6/uL (4.0-5.20); Red Cell Distribution Width 14.6 % (11.8-14.3); White Blood Cell 22.4 10^3/uL (4.4-10.8)
[2023-08-19 04:16] LABS: Alanine Aminotransferase 15 U/L (7-40); Albumin 2.3 g/dL (3.2-4.8); Alkaline Phosphatase 107 U/L (46-116); Anion Gap 2 (5-15); Aspartate Aminotransferase 35 U/L (13-40); BUN/Creatinine Ratio 48.8 (10.0-20.0); Basophils % (manual) 0 (0.0-2.0); Blast Cells 0; Blood Urea Nitrogen 21 mg/dL (9-23); Calcium 8.3 mg/dL (8.7-10.4); Carbon Dioxide 32 mmol/L (20-30); Chloride 102 mmol/L (98-107); Eosinophils % (manual) 0 (0-7); Glucose 149 mg/dL (74-106); Magnesium 1.9 mg/dL (1.6-2.6); Metamyelocytes % 0; Potassium 4.3 mmol/L (3.5-5.1); Promyelocytes % 0; Reactive Lymphocytes 0; Sodium 136 mmol/L (136-145)
[2023-08-19 04:17] LABS: Bilirubin, Total 0.4 mg/dL (0.2-1.0); Phosphorus 3.7 mg/dL (2.4-5.1); Total Protein 4.8 g/dL (5.7-8.2)
[2023-08-19 04:49] LABS: Band Neutrophils % (manual) 25; Lymphocytes % (manual) 8 (10.0-50.0); Monocytes % (manual) 8 (0-12); Myelocytes % 2
[2023-08-19 04:50] LABS: Platelet Estimate Adequate; Stomatocytes Few
[2023-08-19 07:17] LABS: Base Excess 2.7 mmol/L (-2.0-2.0)
[2023-08-19] MEDS: fentaNYL Drip 2500mCg/250mlNS 250 ML IV SCH (12:06)
[2023-08-19] MEDS: TPN PER PHARMACY IV NR (20:02)
[2023-08-20] VITALS (9 sets, daily range): BP systolic 93–115; BP diastolic 48–59; PULSE 98–103; RESP 16–80; TEMP 101.3; O2SAT 92–100
== END 2023-08-20 01:25 | disposition short-term general hospital (02) | DRG 438 ==
LOC: ER 10:17 → EDBD 10:17 → OVERFLOW 13:58 → EAST 22:35 → TELE-EAST 08-07 20:29 → DOU IN ICU 08-08 12:00 → ICU WEST 08-08 16:52
PROVIDERS: ADMIT Nurse Practitioner Family; ATTEND Student in an Organized Health Care Education/Training Program
PROC: 0BH17EZ Insertion of Endotracheal Airway into Trachea, Via Natural or Artificial Opening (ICD-10-PCS; principal; 2023-08-08)
PROC: 5A1955Z Respiratory Ventilation, Greater than 96 Consecutive Hours (ICD-10-PCS; 2023-08-08)
PROC: 02HV33Z Insertion of Infusion Device into Superior Vena Cava, Percutaneous Approach (ICD-10-PCS; 2023-08-08)
PROC: B548ZZA Ultrasonography of Superior Vena Cava, Guidance (ICD-10-PCS; 2023-08-08)
DX: K85.91 Acute pancreatitis with uninfected necrosis, unspecified (principal); J96.01 Acute respiratory failure with hypoxia; N17.0 Acute kidney failure with tubular necrosis; E87.20 Acidosis, unspecified; E87.3 Alkalosis; I50.20 Unspecified systolic (congestive) heart failure; K21.9 Gastro-esophageal reflux disease without esophagitis; E66.01 Morbid (severe) obesity due to excess calories; E87.6 Hypokalemia; K29.80 Duodenitis without bleeding; K76.0 Fatty (change of) liver, not elsewhere classified; E86.9 Volume depletion, unspecified; K80.20 Calculus of gallbladder without cholecystitis without obstruction; R73.9 Hyperglycemia, unspecified; E78.5 Hyperlipidemia, unspecified; R74.01 Elevation of levels of liver transaminase levels; I11.0 Hypertensive heart disease with heart failure; E87.5 Hyperkalemia; Z68.39 Body mass index [BMI] 39.0-39.9, adult
CPT/HCPCS: 36415; 36600; 71045; 71250; 71260; 71275; 74176; 74177; 76705; 80048; 80053; 80061; 80074; 80202; 80307; 81001; 82805; 82962; 83036; 83605; 83690; 83735; 83880; 84100; 84443; 84478; 84484; 85007; 85025; 85027; 85379; 85610; 86703; 87040; 87070; 87081; 87086; 87205; 93005; 93306; 94002; 94003; 94640; C9113; G0378; J0131; J1815; J1885; J1956; J2185; J2250; J2405; J2543; J2704; J3480; J3490; J7060

== ENCOUNTER 2023-08-29 04:26 | Inpatient (IN) | payer OTHER, MEDICAID ==
[~2023-08-29] VITALS: Ht 152.4 cm; Wt 96.4 kg
[2023-08-29] MEDS ORDERED: NITROGLYCERIN 0.4 MG SL TAB SL PRN (17:30)
[2023-08-29] MEDS ORDERED: MORPHINE SULFATE INJ 2 MG/ml SYRG IV PRN (17:30)
[2023-08-29 17:41] VITALS: BP 153/74; PULSE 100; RESP 20; TEMP 98.1; O2SAT 96
[2023-08-29 17:46] VITALS: BP 153/74; PULSE 100; RESP 20; TEMP 98.1; O2SAT 96
[2023-08-29 18:48] LABS: Alanine Aminotransferase 13 U/L (7-40); Albumin 2.8 g/dL (3.2-4.8); Alkaline Phosphatase 56 U/L (46-116); Anion Gap 4 (5-15); Aspartate Aminotransferase 25 U/L (13-40); BUN/Creatinine Ratio 18.2 (10.0-20.0); Blood Urea Nitrogen 6 mg/dL (9-23); Calcium 8.3 mg/dL (8.7-10.4); Carbon Dioxide 34 mmol/L (20-30); Chloride 100 mmol/L (98-107); Glucose 117 mg/dL (74-106); Lipase 45 U/L (12-53); Potassium 3.3 mmol/L (3.5-5.1); Sodium 138 mmol/L (136-145)
[2023-08-29 18:49] LABS: Bilirubin, Total 0.7 mg/dL (0.2-1.0); Total Protein 5.2 g/dL (5.7-8.2)
[2023-08-29 18:54] LABS: Basophils # (auto) 0 10 ^3/uL (0-0.2); Basophils % (auto) 0.8 % (0.0-2.0); Eosinophils # (auto) 0.1 10 ^3/uL (0-0.8); Eosinophils % (auto) 1.2 % (0.0-7.0); Hematocrit 26.7 % (36.0-46.0); Hemoglobin 8.7 g/dL (12.2-16.2); Lymphocytes % (auto) 16.4 % (10.0-50.0); Mean Corpuscular Hemoglobin 29.4 pg (28.0-32.0); Mean Corpuscular Hgb Conc. 32.6 g/dL (32.0-36.0); Mean Corpuscular Volume 90.2 fL (80.0-100.0); Monocytes # (auto) 0.7 10 ^3/uL (0-1.3); Monocytes % (auto) 12.3 % (0.0-12.0); Neutrophils # (auto) 4.1 10 ^3/uL (1.6-8.6); Neutrophils % (auto) 69.3 % (37.0-80.0); Nucleated Red Blood Cells % 0.1 %; Red Blood Cells 2.96 10^6/uL (4.0-5.20); Red Cell Distribution Width 14.7 % (11.8-14.3); White Blood Cell 5.9 10^3/uL (4.4-10.8)
[2023-08-29 20:00] VITALS: BP 145/70; PULSE 102; PULSE 94; RESP 18; TEMP 97.6; O2SAT 96
[2023-08-29] MEDS: POTASSIUM CHL 20MEQ/100ML 100 ML IV SCH (21:51)
[2023-08-29 22:00] VITALS: BP 153/79; PULSE 106; RESP 16; TEMP 97.6; O2SAT 96
[2023-08-29] MEDS: FUROSEMIDE 20 MG/2 ML VIAL IV ONE (22:26)
[2023-08-29] MEDS ORDERED: OMEP20TA PO (22:44)
[2023-08-30 01:00] VITALS: BP 150/83; PULSE 105; RESP 16; TEMP 97.7; O2SAT 95
[2023-08-30 05:00] VITALS: BP 92/55; PULSE 102; RESP 16; TEMP 98.6; O2SAT 96
[2023-08-30 06:30] LABS: Alanine Aminotransferase 16 U/L (7-40); Albumin 2.9 g/dL (3.2-4.8); Alkaline Phosphatase 58 U/L (46-116); Anion Gap 5 (5-15); Aspartate Aminotransferase 27 U/L (13-40); BUN/Creatinine Ratio 23.5 (10.0-20.0); Bilirubin, Total 0.7 mg/dL (0.2-1.0); Blood Urea Nitrogen 8 mg/dL (9-23); Calcium 8.4 mg/dL (8.7-10.4); Carbon Dioxide 33 mmol/L (20-30); Chloride 101 mmol/L (98-107); Glucose 112 mg/dL (74-106); Lipase 42 U/L (12-53); Potassium 4.1 mmol/L (3.5-5.1); Sodium 139 mmol/L (136-145); Total Protein 5.2 g/dL (5.7-8.2)
[2023-08-30] MEDS ORDERED: APIX5TAB PO (07:02)
[2023-08-30 08:00] VITALS: PULSE 104
[2023-08-30 08:14] LABS: Eosinophils # (auto) 0.1 10 ^3/uL (0-0.8); Hematocrit 27.2 % (36.0-46.0); Hemoglobin 8.9 g/dL (12.2-16.2)
[2023-08-30 08:16] LABS: Basophils # (auto) 0 10 ^3/uL (0-0.2); Basophils % (auto) 0.8 % (0.0-2.0); Eosinophils % (auto) 1.9 % (0.0-7.0); Lymphocytes % (auto) 17.9 % (10.0-50.0); Mean Corpuscular Hemoglobin 29.5 pg (28.0-32.0); Mean Corpuscular Hgb Conc. 32.6 g/dL (32.0-36.0); Mean Corpuscular Volume 90.4 fL (80.0-100.0); Monocytes # (auto) 0.7 10 ^3/uL (0-1.3); Monocytes % (auto) 13.6 % (0.0-12.0); Neutrophils # (auto) 3.6 10 ^3/uL (1.6-8.6); Neutrophils % (auto) 65.8 % (37.0-80.0); Nucleated Red Blood Cells % 0.2 %; Red Blood Cells 3.02 10^6/uL (4.0-5.20); Red Cell Distribution Width 14.6 % (11.8-14.3); White Blood Cell 5.5 10^3/uL (4.4-10.8)
[2023-08-30 09:00] VITALS: BP 150/72; PULSE 100; RESP 22; TEMP 97.8; O2SAT 96
[2023-08-30 13:00] VITALS: BP 155/75; PULSE 100; RESP 18; TEMP 98.2; O2SAT 96
[2023-08-30 14:20] VITALS: BP 155/75; PULSE 100; RESP 18; TEMP 98.2; O2SAT 96
[2023-08-31 10:48] LABS: Hepatitis B Surface Antigen Negative (Negative)
[2023-08-31 11:09] LABS: Hepatitis C Antibody Negative (Negative)
== END 2023-08-30 15:20 | DRG 439 ==
LOC: TELE-WESTW 15:44
PROVIDERS: ADMIT Internal Medicine; ATTEND Internal Medicine
DX: K85.90 Acute pancreatitis without necrosis or infection, unspecified (principal); Z68.41 Body mass index [BMI] 40.0-44.9, adult; E78.5 Hyperlipidemia, unspecified; I11.0 Hypertensive heart disease with heart failure; I50.9 Heart failure, unspecified; E87.6 Hypokalemia; E66.9 Obesity, unspecified; R73.9 Hyperglycemia, unspecified; Z79.899 Other long term (current) drug therapy
CPT/HCPCS: 36415; 71045; 80053; 83690; 85025; 86803; 87340; 93005; G0378; J3480